=== PATIENT | female | born 1990 | race Caucasian/White ===

== ENCOUNTER → 2017-08-15 | Outpatient (REF) | payer OTHER, SELFPAY | LOC: M LAB REF 16:21 | DX: N39.0 Urinary tract infection, site not specified (principal) | CPT/HCPCS: 87086 ==

== ENCOUNTER → 2017-11-04 | Outpatient (REF) | payer OTHER | LOC: M SFHCLERA 14:15 | DX: N30.01 Acute cystitis with hematuria (principal) ==

== ENCOUNTER → 2018-02-10 | Outpatient (REF) | payer OTHER ==
[2018-02-10 11:58] LABS: HEMATOCRIT 35.7 % (36.0-47.0); HEMOGLOBIN 11.5 g/dl (12.0-15.5); MEAN CORPUSCULAR HGB CONC 32.2 g/dl (32.0-36.5); MEAN CORPUSCULAR VOLUME 87.1 fl (80.0-96.0); PLATELET COUNT, AUTOMATED 229 10^3/uL (150-450); RED CELL DISTRIBUTION WIDTH 14.1 % (11.5-14.5); RETIC HEMOGLOBIN EQUIVALENT 33.9 pg (24-36); RETICULOCYTE # 44.3 10^9/L (17-77); RETICULOCYTE % 1.1 % (0.5-1.5)
[2018-02-10 20:14] LABS: BLOOD UREA NITROGEN 10 MG/DL (7-18); CREATININE FOR GFR 0.65 MG/DL (0.55-1.30)
[2018-02-10 20:15] LABS: ALKALINE PHOSPHATASE 48 U/L (45-117); ALT/SGPT 19 U/L (12-78); ANION GAP 7 MEQ/L (8-16); AST/SGOT 18 U/L (7-37); BILIRUBIN,TOTAL 0.3 MG/DL (0.2-1.0); CARBON DIOXIDE LEVEL 26 MEQ/L (21-32); CHLORIDE LEVEL 105 MEQ/L (98-107); FERRITIN 5 NG/ML (8-252); FREE T4 0.79 NG/DL (0.76-1.46); GLOMERULAR FILTRATION RATE > 60.0 (>60); IRON (FE) 93 UG/DL (50-170); LDL CHOLESTEROL 70 MG/DL (<100); POTASSIUM SERUM 4.2 MEQ/L (3.5-5.1); SODIUM LEVEL 138 MEQ/L (136-145); TOTAL IRON BINDING CAPACITY 442 UG/DL (250-450); TOTAL PROTEIN 7.6 GM/DL (6.4-8.2); TRIGLYCERIDES LEVEL 62 MG/DL (<150)
[2018-02-11 02:51] LABS: ALBUMIN/GLOBULIN RATIO 1.11 (1.00-1.93); CHOLESTEROL LEVEL 165 MG/DL (<200); CHOLESTEROL RISK RATIO 1.987 (<5); HDL CHOLESTEROL 83 MG/DL (>40); NON-HDL-C 82 MG/DL
[2018-02-11 02:59] LABS: GLUCOSE, FASTING 83 MG/DL (70-100)
[2018-02-13 08:10] LABS: ZINC PLASMA 68 ug/dL (56-134)
== END ==
LOC: M SFHCPLAZ 09:48
DX: L65.9 Nonscarring hair loss, unspecified (principal); D50.9 Iron deficiency anemia, unspecified; Z13.220 Encounter for screening for lipoid disorders

== ENCOUNTER → 2018-03-06 | Outpatient (REF) | payer OTHER ==
[2018-03-06 16:21] LABS: RHEUMATOID FACTOR QUANT 27.6 IU/ML (<15.0)
[2018-03-06 16:21] LABS: C REACTIVE PROTEIN QUANTITATIV 0.73 MG/DL (0.00-0.30)
[2018-03-06 16:54] LABS: ERYTHROCYTE SEDIMENTATION RATE 17 mm/hr (0-20)
[2018-03-09 00:06] LABS: CYCLIC CITRULLINATED PEPTIDE 7 units (0-19)
[2018-03-09 00:06] LABS: ANA (HEP2) Negative (.); Lyme Disease IgG/IgM Antibodie <0.91 ISR (0.00-0.90); Lyme Disease IgM Ab Quantitati <0.80 index (0.00-0.79)
== END ==
LOC: M SFHCPLAZ 15:06
DX: M25.50 Pain in unspecified joint (principal)

== ENCOUNTER → 2018-06-18 | Outpatient (REF) | payer OTHER ==
[2018-06-18 18:15] LABS: HEMATOCRIT 33.3 % (36.0-47.0); HEMOGLOBIN 10.7 g/dl (12.0-15.5); MEAN CORPUSCULAR HGB CONC 32.1 g/dl (32.0-36.5); PLATELET COUNT, AUTOMATED 291 10^3/uL (150-450); RED BLOOD COUNT 4.11 10^6/uL (4.00-5.40); WHITE BLOOD COUNT 6.5 10^3/uL (4.0-10.0)
[2018-06-18 18:16] LABS: PERCENT SATURATION 17.3 % (13.2-45.0)
== END ==
LOC: M SFHCPLAZ 14:43
PROVIDERS: ATTEND Physician Assistant
DX: D50.9 Iron deficiency anemia, unspecified (principal)
CPT/HCPCS: 36415; 82728; 83550; 85027; 85046; G0463

== ENCOUNTER → 2018-07-25 | Outpatient (REF) | payer OTHER ==
[2018-07-25 17:38] LABS: C REACTIVE PROTEIN QUANTITATIV 0.77 MG/DL (0.00-0.30); RHEUMATOID FACTOR QUANT 30.4 IU/ML (<15.0)
[2018-07-28 11:44] LABS: HEPATITIS B SURFACE ANTIGEN NEGATIVE (NEGATIVE); HEPATITIS C VIRUS ABY INDEX < 0.0 INDEX (<0.8)
[2018-07-28 12:14] LABS: HEPATITIS B SURFACE ANTIBODY NEGATIVE (POSITIVE)
[2018-07-30 10:15] LABS: ANGIOTENSIN 1 CONVERTING ENZYM 39 U/L (14-82); HEPATITIS B CORE ANTIBODY IGG Negative (Negative); HLA-B27 Negative (.); RNP ANTIBODY 0.3 AI (0.0-0.9); SMITHS ANTIBODY < 0.2 AI (0.0-0.9); SSA SJOGRENS A <0.2 AI (0.0-0.9); SSB SJOGRENS B <0.2 AI (0.0-0.9)
== END ==
LOC: M SFHCPLAZ 12:47
PROVIDERS: ATTEND Internal Medicine Rheumatology
DX: M54.9 Dorsalgia, unspecified (principal); R76.8 Other specified abnormal immunological findings in serum; M25.559 Pain in unspecified hip

== ENCOUNTER → 2018-07-25 | Outpatient (CLI) | payer OTHER ==
--- NOTE | 2018-07-25 13:58 | REP ---
BILATERAL HIPS, FOUR VIEWS: HISTORY: Hip arthralgia. RIGHT HIP: There is no acute fracture or dislocation. The joint space is normal in appearance. IMPRESSION: There is no acute fracture or dislocation. LEFT HIP: There is no acute fracture or dislocation. The joint space is normal in appearance. IMPRESSION: There is no acute fracture or dislocation. Electronically Signed by Rad Varner MD 07/25/2018 02:02 P
--- NOTE | 2018-07-25 14:01 | REP ---
PARTIAL LUMBAR SPINE, THREE VIEWS: HISTORY: Back pain. There is no acute fracture or subluxation. The L4-5 intervertebral disc is decreased in height, consistent with disc degeneration. IMPRESSION: Degenerative change, as described above. Electronically Signed by Rad Varner MD 07/25/2018 02:03 P
--- NOTE | 2018-07-25 14:11 | REP ---
SI JOINTS, FIVE VIEWS: HISTORY: Back pain. There is no acute fracture or dislocation. The hip joint spaces and left SI joint are normal in appearance. There is sclerosis of the right iliac bone and sacrum adjacent to right sacroiliac joint. IMPRESSION: Degenerative change as described above. Electronically Signed by Rad Varner MD 07/25/2018 02:14 P
== END ==
LOC: M LRY 12:46
PROVIDERS: ATTEND Internal Medicine Rheumatology
DX: M54.9 Dorsalgia, unspecified (principal)

== ENCOUNTER → 2018-08-20 | Outpatient (CLI) | payer OTHER ==
--- NOTE | 2018-08-21 08:14 | REP ---
Sacrum and SI joint MRI study without contrast: History: Back pain in the region of the sacroiliac joints. Technique: Axial, coronal and sagittal imaging planes are acquired with T1 and T2-weighted scans. MRI findings: There are multiple subcortical cysts associated with the SI joints. A small quantity of fluid is seen along and within the right SI joint. The largest of these cysts is on the left measuring 5 mm. There is evidence of low T1 low T2 signal intensity sclerosis and some early spurring along the anterior margin of the SI joints, particularly on the right. There are reactive marrow changes on either side of both sacroiliac joints consistent with chronic inflammation. No definite cortical erosion. There is no evidence of ankylosis. No bony destructive mass lesion is seen. Impression: Findings consistent with chronic bilateral sacroiliitis. Electronically Signed by Smith Redding MD 08/21/2018 09:31 A
== END ==
LOC: M RAD 11:37
PROVIDERS: ATTEND Internal Medicine Rheumatology
DX: M53.3 Sacrococcygeal disorders, not elsewhere classified (principal)

== ENCOUNTER → 2019-01-16 | Outpatient (REF) | payer OTHER ==
[2019-01-16 11:34] LABS: HEMOGLOBIN 11.9 g/dl (12.0-15.5); MEAN CORPUSCULAR HEMOGLOBIN 29.5 pg (27.0-33.0); MEAN CORPUSCULAR HGB CONC 32.2 g/dl (32.0-36.5); MEAN CORPUSCULAR VOLUME 91.8 fl (80.0-96.0); PLATELET COUNT, AUTOMATED 252 10^3/uL (150-450); RED BLOOD COUNT 4.03 10^6/uL (4.00-5.40); WHITE BLOOD COUNT 5.4 10^3/uL (4.0-10.0)
[2019-01-16 11:40] LABS: ALBUMIN 3.8 GM/DL (3.2-5.2); ALT/SGPT 16 U/L (12-78); BILIRUBIN,TOTAL 0.1 MG/DL (0.2-1.0); BLOOD UREA NITROGEN 9 MG/DL (7-18); CALCIUM LEVEL 9.1 MG/DL (8.5-10.1); CARBON DIOXIDE LEVEL 29 MEQ/L (21-32); CHLORIDE LEVEL 107 MEQ/L (98-107); CREATININE FOR GFR 0.78 MG/DL (0.55-1.30); FERRITIN 8 NG/ML (8-252); GLOMERULAR FILTRATION RATE > 60.0 (>60); GLUCOSE, FASTING 91 MG/DL (70-100); IRON (FE) 25 UG/DL (50-170); PERCENT SATURATION 6.1 % (13.2-45.0); POTASSIUM SERUM 4.6 MEQ/L (3.5-5.1); SODIUM LEVEL 143 MEQ/L (136-145); TOTAL IRON BINDING CAPACITY 410 UG/DL (250-450); TOTAL PROTEIN 7.4 GM/DL (6.4-8.2)
== END ==
LOC: M SFHCPLAZ 09:31
PROVIDERS: ATTEND Family Medicine
DX: D50.9 Iron deficiency anemia, unspecified (principal); Z79.899 Other long term (current) drug therapy

== ENCOUNTER → 2019-03-20 | Outpatient (CLI) | payer OTHER ==
--- NOTE | 2019-03-20 14:44 | REP ---
PELVIC SONOGRAPHY: HISTORY: Pelvic pain. FINDINGS: Transvaginal and transabdominal scanning are performed. Visualized bladder valencia are smooth. Uterine dimensions are 8.2 x 4.2 x 5.9 cm. Endometrial echo is 1.1 cm thick. No focal uterine mass seen. No free fluid is noted. Normal size right ovary is seen with some difficulty due to eight posterior position. Its dimensions of 2.1 x 2.8 x 3.4 cm. Left ovary is also normal in appearance with dimensions of 3.0 x 2.3 x 2.2 cm. There is a 1.7 cm septated follicle cyst in the left ovary. IMPRESSION: 1.7 cm follicle cyst left ovary. Normal pelvic sonography. Electronically Signed by Smith Redding MD 03/20/2019 07:42 P
== END ==
LOC: M LRY 12:47
PROVIDERS: ATTEND Physician Assistant
DX: N83.02 Follicular cyst of left ovary (principal); R10.2 Pelvic and perineal pain
CPT/HCPCS: 76830; 76856; 81002; 81025; 93976; G0463

== ENCOUNTER → 2019-04-22 | Outpatient (REF) | payer OTHER ==
[2019-04-22 12:04] LABS: HEMATOCRIT 35.7 % (36.0-47.0); HEMOGLOBIN 11.3 g/dl (12.0-15.5); MEAN CORPUSCULAR HGB CONC 31.7 g/dl (32.0-36.5); MEAN CORPUSCULAR VOLUME 88.4 fl (80.0-96.0); PLATELET COUNT, AUTOMATED 243 10^3/uL (150-450); RED BLOOD COUNT 4.04 10^6/uL (4.00-5.40); WHITE BLOOD COUNT 4.8 10^3/uL (4.0-10.0)
[2019-04-22 12:12] LABS: PERCENT SATURATION 10.9 % (13.2-45.0)
== END ==
LOC: M SFHCPLAZ 09:40
PROVIDERS: ATTEND Family Medicine
DX: D50.9 Iron deficiency anemia, unspecified (principal)
CPT/HCPCS: 36415; 82728; 83550; 85027; G0463

== ENCOUNTER → 2019-04-24 | Outpatient (CLI) | payer OTHER ==
--- NOTE | 2019-04-24 12:45 | REP ---
PELVIC ULTRASOUND: Real-time sonographic evaluation of pelvis performed utilizing transabdominal and endovaginal technique. Bladder measures 14.8 x 7.8 x 10.4 cm. Uterus measures 8.4 x 4.0 x 5.2 cm. Endometrial thickness is 13 mm. Right ovary measures 2.4 x 1.8 x 1.4 cm and left ovary is somewhat enlarged 3.8 x 2.4 x 3.3 cm. There is no torsion bilaterally with duplex Doppler evaluation. There is a structure in the left ovary measuring 1.9 x 1.6 x 2.2 cm with an irregular shape, predominately cystic with a thick wall, likely representing a resolving cyst or dominant follicle. Myometrial echotexture is somewhat heterogeneous. scar is noted. IMPRESSION: Irregular cystic structure left ovary, maximum diameter 2.2 cm representing either resolving cyst or dominant follicle. Electronically Signed by Brant Vasquez MD 04/27/2019 09:20 A
== END ==
LOC: M RAD 09:27
PROVIDERS: ATTEND Family Medicine
DX: R10.2 Pelvic and perineal pain (principal); Z87.42 Personal history of other diseases of the female genital tract

== ENCOUNTER 2019-05-07 11:55 | Outpatient (RCR) | payer OTHER | END 2019-06-02 | LOC: M PT 11:55 | PROVIDERS: ATTEND Family Medicine | DX: M53.3 Sacrococcygeal disorders, not elsewhere classified (principal) ==